=== PATIENT | female | born 1990 | race Caucasian/White ===

== ENCOUNTER 2016-11-24 09:34 | Emergency (ER) | payer BC, OTHER ==
[~2016-11-24] VITALS: Ht 149.9 cm; Wt 49.9 kg
[2016-11-24] MEDS ORDERED: ALBUTEROL SULF 2.5 MG/0.5ML(0.5%) NEB SOLN NEB ONE (09:45)
[2016-11-24] MEDS ORDERED: IPRATROPIUM BROM 0.5 MG/2.5ML INH SOL NEB ONE (09:45)
[2016-11-24 11:10] VITALS: BP 135/63
== END 2016-11-24 11:21 | disposition home or self-care (01) ==
LOC: ER 09:34
DX: J45.909 Unspecified asthma, uncomplicated (principal); J20.9 Acute bronchitis, unspecified
CPT/HCPCS: 94640